=== PATIENT | male | born 1955 | race Caucasian/White ===

== ENCOUNTER 2024-11-24 16:41 | Emergency (ER) | payer OTHER ==
[~2024-11-24] VITALS: Ht 165.1 cm; Wt 104.3 kg
[2024-11-24] MEDS ORDERED: NS 1,000 ML IV SCH (17:05)
[2024-11-24] MEDS ORDERED: Folic Acid 1 MG TAB PO ONE (17:05)
[2024-11-24 17:21] LABS: BASOPHILS ABSOLUTE AUTO 0.04 K/mm3 (0.00-0.23); BASOPHILS PERCENT AUTO 1 % (0-2); EOSINOPHILS ABSOLUTE AUTO 0.45 K/mm3 (0.00-0.68); EOSINOPHILS PERCENT AUTO 8 % (0-6); Hematocrit 45.7 % (37.0-53.0); Hemoglobin 16.2 g/dL (13.5-17.5); IMMATURE GRAN ABSOLUTE AUTO 0.09 K/mm3 (0.00-0.10); IMMATURE GRAN PERCENT AUTO 2 % (0-1); LYMPHOCYTES ABSOLUTE AUTO 1.50 K/mm3 (0.84-5.20); LYMPHOCYTES PERCENT AUTO 27 % (21-46); MONOCYTES ABSOLUTE AUTO 0.81 K/mm3 (0.16-1.47); MONOCYTES PERCENT AUTO 14 % (4-13); Mean Corpuscular HGB Conc 35.4 g/dL (31.5-36.5); Mean Corpuscular Volume 98 fL (80-100); NEUTROPHILS ABSOLUTE AUTO 2.76 K/mm3 (1.96-9.15); NEUTROPHILS PERCENT AUTO 49 % (41-73); NRBC ABSOLUTE 0.00 K/mm3 (0.00-0.02); NRBC Auto 0.0 /100 WBC (0.0-0.2); Platelet Count 153 K/mm3 (150-400); RDW Coefficient Variation 12.1 % (11.7-14.2); RDW Standard Deviation 43.6 fL (35.1-46.3)
[2024-11-24 17:53] LABS: Ethanol (Alcohol), Blood, Med 206.0 mg/dL; Phosphorus, Blood 3.9 mg/dL (2.5-4.9)
[2024-11-24 18:14] LABS: Anion Gap 15.0 mmol/L (3-11); Blood Urea Nitrogen 6.0 mg/dL (8-24); CO2, Blood 21.0 mmol/L (21-32); Calcium, Blood 9.0 mg/dL (8.5-10.1); Chloride, Blood 95.0 mmol/L (98-108); Creatinine, Blood 0.71 mg/dL (0.60-1.20); Glucose, Blood 88.0 mg/dL (70-99); Magnesium, Blood 2.1 mg/dL (1.6-2.4); Potassium, Blood 4.5 mmol/L (3.5-5.5); Sodium, Blood 126.0 mmol/L (136-145); Thyroid Stimulating Hormone 4.05 uIU/mL (0.360-4.800)
[2024-11-24 18:28] LABS: Source, Urine Clean Catch
[2024-11-24 18:32] LABS: Bilirubin, Urine Neg (Neg); Glucose Qualitative, Urine Neg (Neg); Ketones, Urine Neg (Neg); Leukocyte Esterase, Urine Neg (Neg); Protein, Urine Neg (Neg); Specific Gravity, Urine 1.010 (1.003-1.022); Urobilinogen, Urine NORM (Normal)
[2024-11-24 18:45] LABS: Color, Urine Pale Yellow (P-Yellow)
[2024-11-24 21:30] VITALS: BP 161/93
== END 2024-11-24 23:25 | disposition home or self-care (01) ==
LOC: ER 16:41
PROVIDERS: Emergency Medicine
DX: F10.10 Alcohol abuse, uncomplicated (principal); Z04.3 Encounter for examination and observation following other accident
CPT/HCPCS: 70450; 80048; 80320; 81003; 82607; 83735; 84100; 84439; 84443; 85025; 93005; 93010; 99285-25; A9270; J7030

== ENCOUNTER 2025-01-10 01:32 | Observation (INO) | payer MEDICARE ==
[~2025-01-10] VITALS: Ht 157.5 cm; Wt 97.9 kg
[2025-01-10] MEDS ORDERED: RX Prepack 6 Tabs Oxycodone 5mg UD ONE (03:25)
[2025-01-10] MEDS ORDERED: FLU VACC TS2025-26(6MOS UP)/PF 45 MCG/0.5 ML SYRINGE IM SCH (08:10)
[2025-01-10] MEDS ORDERED: Enoxaparin 40 MG/0.4 ML SYR SC SCH (09:00)
--- NOTE | 2025-01-10 10:47 | NUR ---
CALLED ED FOR REPORT AT 0945 ON PATIENT COMING TO ROOM 302
[2025-01-10 11:04] VITALS: BP 187/105
[2025-01-10] MEDS ORDERED: HydrALAZINE HCl 20 MG / ML 1ML Vial IV PRN (12:30)
--- NOTE | 2025-01-10 12:45 | NUR ---
CALL TO DR. YESSY CRAWFORD [phone] TO ASK FOR ORTHO CONSULT, DOC DID NOT ANSWER THE PHONE, WILL TRY BACK LATER
[2025-01-10 12:47] LABS: BASOPHILS ABSOLUTE AUTO 0.01 K/mm3 (0.00-0.23); BASOPHILS PERCENT AUTO 0 % (0-2); EOSINOPHILS ABSOLUTE AUTO 0.02 K/mm3 (0.00-0.68); EOSINOPHILS PERCENT AUTO 0 % (0-6); Hematocrit 42.9 % (37.0-53.0); Hemoglobin 15.0 g/dL (13.5-17.5); IMMATURE GRAN ABSOLUTE AUTO 0.02 K/mm3 (0.00-0.10); IMMATURE GRAN PERCENT AUTO 0 % (0-1); LYMPHOCYTES ABSOLUTE AUTO 0.43 K/mm3 (0.84-5.20); LYMPHOCYTES PERCENT AUTO 8 % (21-46); MONOCYTES ABSOLUTE AUTO 0.53 K/mm3 (0.16-1.47); MONOCYTES PERCENT AUTO 10 % (4-13); Mean Corpuscular HGB Conc 35.0 g/dL (31.5-36.5); Mean Corpuscular Volume 99 fL (80-100); NEUTROPHILS ABSOLUTE AUTO 4.17 K/mm3 (1.96-9.15); NEUTROPHILS PERCENT AUTO 81 % (41-73); NRBC ABSOLUTE 0.00 K/mm3 (0.00-0.02); NRBC Auto 0.0 /100 WBC (0.0-0.2); Platelet Count 165 K/mm3 (150-400); RDW Coefficient Variation 13.9 % (11.7-14.2); RDW Standard Deviation 50.4 fL (35.1-46.3)
[2025-01-10 13:15] LABS: Alanine Aminotransfer (ALT/SGP 35.0 U/L (12-78); Albumin, Blood 3.7 g/dL (3.4-5.0); Albumin/Globulin Ratio 1.2 (0.8-1.8); Anion Gap 9.0 mmol/L (3-11); Aspartate Aminotrans (AST/SGOT 26.0 U/L (12-37); Bilirubin, Total 1.7 mg/dL (0.1-1.0); Blood Urea Nitrogen 8.0 mg/dL (8-24); CO2, Blood 24.0 mmol/L (21-32); Calcium, Blood 9.1 mg/dL (8.5-10.1); Chloride, Blood 103.0 mmol/L (98-108); Creatinine, Blood 0.85 mg/dL (0.60-1.20); Globulin, Blood 3.1 g/dL (2.2-4.0); Glucose, Blood 162.0 mg/dL (70-99); Potassium, Blood 4.3 mmol/L (3.5-5.5); Sodium, Blood 132.0 mmol/L (136-145); Total Protein, Blood 6.8 g/dL (6.4-8.2)
--- NOTE | 2025-01-10 13:22 | NUR ---
CALL FORM PATIENT'S BROTHER, REQUESTIN CALL BACK FOR UPDATE ON PATIENT'S CONDITION. ROGELIO VICENTE: [phone]
--- NOTE | 2025-01-10 13:33 | NUR ---
CALL TO PATIENT'S BROTHER ROGELIO, 1328 UPDATED ROGELIO ON PATIENTS CONDITION AND THE PLAN. BROTHER WAS GRATEFUL FOR UPDATE. DIALED BROTHERS NUMBER ON ROOM PHONE SO PATIENT COULD SPEAK WITH BROTHER ROGELIO.
[2025-01-10 14:06] VITALS: BP 165/114
[2025-01-10 14:23] VITALS: BP 178/101
[2025-01-10 14:46] VITALS: BP 155/88
[2025-01-10 15:39] VITALS: BP 175/106
--- NOTE | 2025-01-10 17:26 | NUR ---
SHIFT SUMMARY PATIENT IS A&OX4, SLIGHTLY CONFUSED TO TIME, FORGETFUL. HYPERTENSIVE THIS SHIFT, TREATED PER EMAR. ORTHO CONSULTED, PATIENT TO BE NPO AFTER MIDNIGHT. NURSE NOTIFY ORDER PLACED. HE IS BED REST UNTIL WEIGHT BEARING ORDERS. PAIN IN BROKEN ANKLE TREATED PER EMAR. BED IS LOW, CALL LIGHT WITHIN REACH.
[2025-01-10] MEDS ORDERED: LORazepam 2 MG/ML 1ML Injection IV PRN ×2 (17:30)
[2025-01-10] MEDS ORDERED: LOSA50 PO (17:48)
--- NOTE | 2025-01-10 17:56 | NUR ---
PATIENT CLENCHING, BREATHING THROUGH PURSED LIPS, NOT RELATED TO SOB. PATIENT ADMITTING TO PAIN, PATIENT BLOOD PRESSURE HIGH AND NOT VERY RESPONSIVE TO IV HYDRALAZINE. DISCUSSED FINDING WITH DR. GIVENS, DR. GIVENS ADVISED TO D/C TRAMADOL AND REPLACE WITH NORCO 5-325MG 1 PO Q4HR PRN.
[2025-01-10] MEDS ORDERED: HYDROcodone 5-APAP 325 TAB PO PRN (18:00)
[2025-01-10 19:36] VITALS: BP 111/82
[2025-01-11] VITALS (10 sets, daily range): BP systolic 136–168; BP diastolic 73–104
--- NOTE | 2025-01-11 04:51 | NUR ---
SHIFT SUMMARY PATIENT IS ALERT AND ORIENTED. PATIENT HAS HAD NO ACUTE EVENTS THIS SHIFT. VITAL SIGNS REVIEWED. PATIENT HAS COMPLAINED OF PAIN. PATIENT HAS BEEN MEDICATED FOR PAIN PER EMAR. PATIENT HAS HAD NO COMPLAINTS OF SOB, NAUSEA OR VOMITTING THIS SHIFT. PATIENT HAS BEEN NPO SINCE MIDNIGHT. BED IN LOCKED AND LOWEST POSITION. CALL LIGHT IN PLACE.
[2025-01-11] MEDS ORDERED: Folic Acid 1 MG TAB PO SCH (09:00)
[2025-01-11] MEDS ORDERED: Dexamethasone Sod Phos 10 MG/ML 1ML VIAL ONE (14:20)
[2025-01-11] MEDS ORDERED: FentaNYL Citrate 50 MCG/ML 2 ML Injection ONE (14:20)
[2025-01-11] MEDS ORDERED: Midazolam HCl 1MG / ML 2ML Vial ONE (14:20)
[2025-01-11] MEDS ORDERED: Ondansetron HCl 2 MG / ML 2ML Vial ONE (14:20)
[2025-01-11] MEDS ORDERED: CeFAZolin Sodium 2,000 MG in NS 100 ML IV SCH (15:00)
--- NOTE | 2025-01-11 15:20 | NUR ---
Pre-Op teaching done. Pt verbalizes understanding. Patient confirms NPO status and agrees with scheduled surgery. History, Chart, Medications and Allergies reviewed before start of procedure.
--- NOTE | 2025-01-11 15:20 | NUR ---
DR. JOHNSON AT FOR PREOP NERVE BLOCKS. PREMEDS GIVEN BY DR JOHNSON. ADDUCTOR NERVE BLOCK START AT 1521. PT PLACED ON 2L NC. VSS AND MONITORED THROUGHOUT. PT TAWANA PROCEDURE WELL. JAYESH ACUÑA ASSISTING ANES. ADDUCTOR BLOCK END TIME 1528. POPLITEAL NERVE BLOCK START AT 1535. END TIME AT 1537.
[2025-01-11] MEDS ORDERED: ePHEDrine Sulfate 50 MG/ML 1ML Injection ONE (16:42)
[2025-01-11] MEDS ORDERED: Ondansetron HCl 2 MG / ML 2ML Vial IV PRN (17:05)
[2025-01-11] MEDS ORDERED: FentaNYL Citrate 50 MCG/ML 2 ML Injection IV PRN ×2 (17:05)
[2025-01-11] MEDS ORDERED: ePHEDrine Sulfate 50 MG/ML 1ML Injection IV PRN (17:05)
[2025-01-11] MEDS ORDERED: HYDROmorphone HCl/Pf 1MG SYR IV PRN ×2 (17:05→17:10)
[2025-01-11] MEDS ORDERED: Metoclopramide HCl 5MG / ML 2ML Vial IV PRN (17:05)
[2025-01-11] MEDS ORDERED: HydrALAZINE HCl 20 MG / ML 1ML Vial IV PRN (17:10)
[2025-01-11] MEDS ORDERED: Albuterol 2.5 MG/3 ML VIAL INH PRN (17:10)
--- NOTE | 2025-01-11 18:09 | NUR ---
1805- THIS RN RECIEVED REPORT FROM KARL IN RECOVERY ROOM.
--- NOTE | 2025-01-11 18:30 | NUR ---
1820- pt brought back to medical floor in stable condition. pt on 2 l oxygen. pt weaned down to 1 l o2. pt can wiggle his toes, 2 sec cap refill, l foot is red/pink and swollen, warm, 2+ pulse in l foot. pt denies any pain. pt is aaox4.
--- NOTE | 2025-01-11 18:32 | NUR ---
SUMMARY- AAOX4. PT ON RA NOW SINCE RETURNING FROM SURGERY-PT WEANED FROM 2L O2. BEDREST. NO ACUTE EVENTS THIS SHIFT. PT HAS GOOD APPETITE. PAIN WELL CONTROLLED WITH EMAR PAIN MEDS. ASSESSMENT OF LLE POST SX ALL WNL. SEE ABOVE NOTES.
--- NOTE | 2025-01-12 05:25 | NUR ---
SHIFT SUMMARY 0/10 PAIN REPORTED BY PT S/P ORIF L ANKLE FOR BIMALLEOLAR FX 01/11/25. MOTOR AND SENSATION REMAIN INTACT. NWB TO LLE. WEANED OFF 2L NC TO RA, SATURATING >= 93% ON RA. PATENT 22 G IV IN L WRIST. TAKES MEDS WHOLE WITH WATER. BRIEF WITH PEEPEE TEEPEE IN PLACE FOR BASELINE URINARY INCONTINENCE. NO EVIDENCE OF ETOH WITHDRAWAL OVERNIGHT. PT VERBALIZES EAGERNESS FOR EARLY MOBILIZATION OF L ANKLE.
[2025-01-12 05:45] LABS: BASOPHILS ABSOLUTE AUTO 0.00 K/mm3 (0.00-0.23); BASOPHILS PERCENT AUTO 0 % (0-2); EOSINOPHILS ABSOLUTE AUTO 0.00 K/mm3 (0.00-0.68); EOSINOPHILS PERCENT AUTO 0 % (0-6); Hematocrit 44.4 % (37.0-53.0); Hemoglobin 15.2 g/dL (13.5-17.5); IMMATURE GRAN ABSOLUTE AUTO 0.05 K/mm3 (0.00-0.10); IMMATURE GRAN PERCENT AUTO 1 % (0-1); LYMPHOCYTES ABSOLUTE AUTO 0.40 K/mm3 (0.84-5.20); LYMPHOCYTES PERCENT AUTO 5 % (21-46); MONOCYTES ABSOLUTE AUTO 0.59 K/mm3 (0.16-1.47); MONOCYTES PERCENT AUTO 8 % (4-13); Mean Corpuscular HGB Conc 34.2 g/dL (31.5-36.5); Mean Corpuscular Volume 102 fL (80-100); NEUTROPHILS ABSOLUTE AUTO 6.39 K/mm3 (1.96-9.15); NEUTROPHILS PERCENT AUTO 86 % (41-73); NRBC ABSOLUTE 0.00 K/mm3 (0.00-0.02); NRBC Auto 0.0 /100 WBC (0.0-0.2); Platelet Count 170 K/mm3 (150-400); RDW Coefficient Variation 14.2 % (11.7-14.2); RDW Standard Deviation 53.4 fL (35.1-46.3)
[2025-01-12 06:17] LABS: Anion Gap 11.0 mmol/L (3-11); Blood Urea Nitrogen 14.0 mg/dL (8-24); CO2, Blood 23.0 mmol/L (21-32); Calcium, Blood 9.6 mg/dL (8.5-10.1); Chloride, Blood 102.0 mmol/L (98-108); Creatinine, Blood 0.82 mg/dL (0.60-1.20); Glucose, Blood 152.0 mg/dL (70-99); Potassium, Blood 4.3 mmol/L (3.5-5.5); Sodium, Blood 132.0 mmol/L (136-145)
[2025-01-12 07:03] VITALS: BP 173/109
[2025-01-12] MEDS ORDERED: FOLI1 PO (10:19)
--- NOTE | 2025-01-12 11:27 | NUR ---
TRIED CALLING DR CRAWFORD ABOUT WEIGHT-BEARING STATUS FOR PATIENT
[2025-01-12] MEDS ORDERED: Docusate Sodium/Senna 1 Tab PO PRN (13:10)
[2025-01-12] MEDS ORDERED: Polyethylene Glycol 3350 17 gm PO PRN (13:10)
[2025-01-12 14:59] VITALS: BP 131/78
--- NOTE | 2025-01-12 18:38 | NUR ---
END OF SHIFT NOTE PATIENT USED FWW AND NWB LEFT LEG TO USE THE BSC WITH 2 STAFF STAND BY. BOWEL CARE STARTED TODAY. PATIENT PLAN TO SNIF, PATIENT AGREEABLE. CIWA DONE TODAY, VERY LOW CONCERN. 2+ EDEMA ON BLE NOTED. SURGICAL DRESSING C/D/I. PATIENT REPORTS NO PAIN. NO OTHER CONERNS FOR TODAY.
[2025-01-12 19:41] VITALS: BP 133/81
[2025-01-13 03:45] VITALS: BP 154/96
--- NOTE | 2025-01-13 04:47 | NUR ---
SHIFT SUMMARY PAIN-FREE THIS POST-OP DAY 2 FOR L BIMALLEOLAR FX ORIF PERFORMED 01.11.25. DRESSING IS C/D/I. NO SHADOWING. PT WEIGHTBEARS ON RLE, REMAINS NWB ON LLE, ABLE TO STAND/PIVOT TO BSC WITH 2-PERSON ASSIST, FWW, AND GAIT BELT. EATING WELL. SWITCHED FROM PEEPEE TEEPEE TO MALE PUREWICK WITH INCREASED COMFORT. SENSATION RETURNING TO L ANKLE IN AM 01.13.25. PT ATTEMPTING TO PASS BM THIS AM. PT/OT ADVISING SNF, PT AGREES WITH THIS PLAN BEFORE RETURN HOME. HE AGREES TO F/U WITH DENTIST REFERRAL TO [place] MADE BY RANJIT. REQUEST TO DAY SHIFT TO DISCUSS WITH MD ADDING ON REFERRAL FOR PHYSICAL THERAPY FOR BACK PAIN.
[2025-01-13 07:38] VITALS: BP 162/99
[2025-01-13] MEDS ORDERED: Cyclobenzaprine5 MG PO (11:31)
[2025-01-13] MEDS ORDERED: MIRALAX17 GM PO (11:31)
[2025-01-13] MEDS ORDERED: OXYC5 PO (11:32)
[2025-01-13] MEDS ORDERED: B-1100 M1 PO (11:32)
--- NOTE | 2025-01-13 12:32 | NUR ---
DISCHARGE NOTE PATIENT AND BROTHER GIVEN D/C INSTRUCTION AND DISCUSSED PLAN FOR FOLLOW UP. PATIENT TRANSFERED TO WHEELCHAIR WITH FWW AND 1 PERSON ASSIST. PATIENT EDUCATED ABOUT NEW MEDICAITON, PAIN MEDICATOINS AND MIRALAX USE. PATIENT VERBALIZED UNDERSTANDING AND DENIED ANY FURTHER QUESTIONS.
== END 2025-01-13 13:30 | disposition home health service (06) ==
LOC: ER 01:32 → MEDS 01:33
PROVIDERS: Orthopaedic Surgery; ADMIT Family Medicine
PROC: 0QSH04Z Reposition Left Tibia with Internal Fixation Device, Open Approach (ICD-10-PCS; principal; 2025-01-11 16:30)
DX: S82.842A Displaced bimalleolar fracture of left lower leg, initial encounter for closed fracture (principal); W18.30XA Fall on same level, unspecified, initial encounter; R29.6 Repeated falls; F10.20 Alcohol dependence, uncomplicated; I10 Essential (primary) hypertension; E87.1 Hypo-osmolality and hyponatremia; E66.9 Obesity, unspecified; Z68.39 Body mass index [BMI] 39.0-39.9, adult
CPT/HCPCS: 29515; 36415; 70450; 73610; 80048; 80053; 83036; 85025; 96374; 96375; 97162; 97166; 97530; 97535; 99284-25; A6590; A9270; C1713; C1769; G0378; J0360; J0690; J1100; J1650; J2250; J2405; J2704; J3010; J7120